=== PATIENT | female | born 1950 | race Caucasian/White ===

== ENCOUNTER 2019-08-31 16:54 | Inpatient (IN) | payer MEDICARE ==
[~2019-08-31] VITALS: Ht 149.9 cm; Wt 92.3 kg
[2019-08-31] MEDS ORDERED: TYLENOL 500MG500 MG PO (17:33)
[2019-08-31] MEDS ORDERED: ZYLOPRIM 100MG100 MG PO (17:34)
[2019-08-31] MEDS ORDERED: ASPIRIN E.C. 8181 MG PO (17:35)
[2019-08-31] MEDS ORDERED: XANAX .25M0.25 MG/TA PO (17:35)
[2019-08-31] MEDS ORDERED: NEURONTIN300 MG/CAP PO (17:36)
[2019-08-31] MEDS ORDERED: COREG 3.123.125 MG/T PO (17:36)
[2019-08-31] MEDS ORDERED: HYDROCORTISON28.4 GM TP (17:38)
[2019-08-31] MEDS ORDERED: INSULIN 70/3100 U/ML SQ (17:39)
[2019-08-31] MEDS ORDERED: KRILL OIL 5001 EACH PO (17:39)
[2019-08-31] MEDS ORDERED: LEVOXYL0.175 MG PO (17:41)
[2019-08-31] MEDS ORDERED: REQUIP 1MG T1 MG/TAB PO (17:43)
[2019-08-31] MEDS ORDERED: DOLOPHINE HCL5 MG PO (17:43)
[2019-08-31 17:50] VITALS: BP 135/75; PULSE 78; TEMP 97.5
[2019-08-31 19:37] VITALS: BP 158/55; PULSE 83; TEMP 97.8
--- NOTE | 2019-08-31 20:12 | NUR ---
Pt up to chair. No distress noted. Denies pain. Pt ambulated to bathroom and back to chair with 1 assist and walker. Well tolerated. Gait is shuffling at times. Pt displays right sided weakness in court interpreter. Some right sided drift also noted. Pupils are equal and accomodating. Speech is clear. No facial droop noted. Pt is alert and oriented. Respirations even and unlabored. Lungs clear. Abdomen is soft, nontender. BS+. L arm restriction- L FA AV fistula with positive bruit and thrill. Pulse strong. Incision in L Axilla noted. Dressing is falling off. Guaze and tape replaced. Scant amount of serosangenous drainage noted on dressing that was removed. 1+ edema noted to BLE. Pt denies needs.
--- NOTE | 2019-08-31 20:15 | NUR ---
Pt also has some slurring of her words.
--- NOTE | 2019-08-31 21:45 | NUR ---
Dr. Escobar at bedside with patient.
[2019-08-31 23:17] VITALS: BP 150/60; PULSE 103; TEMP 98.3
--- NOTE | 2019-08-31 23:20 | NUR ---
Pt resting in bed. Neurological status unchanged. Pt refusing SCDs.
[2019-09-01 04:11] VITALS: BP 140/46; PULSE 89; TEMP 98.4
--- NOTE | 2019-09-01 06:02 | NUR ---
Pt awake and alert this morning. at bedside. Pt reports that she "feels stronger". Pt still has some word slurring. R sided drift noted. dobie worker in with patient to gather patient history. No difficulty swallowing.
--- NOTE | 2019-09-01 07:51 | NUR ---
Pt down for MRI at this time and will then go to dialysis following.
[2019-09-01 08:16] LABS: BASO % 0.3 % (0.0-2.0); EOS # 0.2 (0.0-0.7); EOS % 3.8 % (0-4.0); GRAN # 4.3 (1.4-6.5); GRAN % 70.1 % (42.2-75.2); LYMPH # 0.9 (1.2-3.4); LYMPH % 14.2 % (20.0-51.0); MEAN CELL VOLUME 93 fl (80.0-100.0); MEAN CORPUSCULAR HEMOGLOBIN 31 pg (27.0-31.0); MEAN CORPUSCULAR HGB CONC 33 g/dl (33.0-37.0); MEAN PLATELET VOLUME 9.8 fl (7.4-10.4); MONO # 0.7 (0.1-0.6); MONO % 10.9 % (1.7-9.3); PLATELET COUNT 139 K/mm3 (130-400); RED BLOOD COUNT 3.59 M/mm3 (4.10-5.30); REDCELL DISTRIBUTION WIDTH-CV 15.1 % (11.5-14.5)
[2019-09-01 08:22] LABS: HEMATOCRIT 33.5 % (37.0-47.0)
[2019-09-01 08:27] LABS: ALBUMIN 3.9 gm/dL (3.5-5.0); CALCIUM 9.1 mg/dL (8.4-10.2); CHOLESTEROL RISK RATIO 8.6; CREATININE, serum 5.55 (0.52-1.25); POTASSIUM 4.6 mmol/L (3.4-5.0)
[2019-09-01 09:35] VITALS: BP 107/46; PULSE 84; TEMP 97.9
--- NOTE | 2019-09-01 10:55 | NUR ---
Initial visit; Patient thanked Insurance Territory Manager for stopping and offering God's blessings.
--- NOTE | 2019-09-01 11:11 | NUR ---
Pt to now have dialysis this afternoon. Pt back from MRI. Assessment completed and charted. Morning medications administered per OCT. Pt denies pain at this time. Denies SOB, on room air, breathing is even and unlabored. Radial pulses strong bilaterally. Pt has INT RFA IV that flushes w/o complications. Rt chest dialysis catheter in place, covered w/gauze and CDI. Pt has RFA fistula that has not been accessed yet. Pt denies dizziness, N/V/D, chest pain, vision changes. Shortage Worker strength is strong, , no drift in LE, some drift noted in LUE and pt states its difficult to left RUE. BLE edema 1+ noted. No other concerns expressed at this time.
[2019-09-01 11:43] VITALS: BP 142/59; PULSE 91; TEMP 97.3
--- NOTE | 2019-09-01 13:48 | NUR ---
Cupola Liner met with patient to discuss discharge planning. Patient lives in [place], [place] with her Kavin (ph#[phone]). Patient sees Dr. Matthew Alicea for primary care and obtains medications from [facility] in [place], [place]. Patient uses a walker and cane at home and reports independence with ADLS. Patient does not have Advance Directives and was not interested in setting them up at this time. Patient plans to return home upon discharge. SW to continue to follow as needed.
--- NOTE | 2019-09-01 14:10 | NUR ---
Pt down for dialysis at this time. Escorted via WC.
--- NOTE | 2019-09-01 18:44 | NUR ---
Pt back from dialysis at this time. Assisted to recliner for dinner. Denies pain at this time. No other concerns voiced.
--- NOTE | 2019-09-01 20:30 | NUR ---
Shift assessment complete. Pt resting in bedside recliner, awake, a&o, cooperative c cares. Pt denies pain or other c/o at this time. INT patent. Incision noted to L axilla s complication; L forearm AVF noted. HD cath to L chest s complication; dressing C/D/I. Tele in place. Neuro-check unchanged/ unremarkable. Pt denies further needs at this time. Call light in reach, bed alarm on. Will continue to monitor.
[2019-09-01 20:39] VITALS: BP 146/51; PULSE 84; TEMP 97.7
[2019-09-01 23:24] VITALS: BP 162/55; PULSE 61; TEMP 98.4
[2019-09-02 06:44] LABS: BASO % 0.2 % (0.0-2.0); EOS # 0.2 (0.0-0.7); GRAN # 3.4 (1.4-6.5); GRAN % 62.3 % (42.2-75.2); HEMOGLOBIN 11.1 g/dl (12.5-16.0); LYMPH % 17.9 % (20.0-51.0); MEAN CELL VOLUME 92 fl (80.0-100.0); MEAN CORPUSCULAR HEMOGLOBIN 31 pg (27.0-31.0); MEAN CORPUSCULAR HGB CONC 33 g/dl (33.0-37.0); MEAN PLATELET VOLUME 9.6 fl (7.4-10.4); MONO # 0.8 (0.1-0.6); MONO % 14.5 % (1.7-9.3); PLATELET COUNT 97 K/mm3 (130-400); RED BLOOD COUNT 3.63 M/mm3 (4.10-5.30); REDCELL DISTRIBUTION WIDTH-CV 15.1 % (11.5-14.5)
[2019-09-02 06:46] LABS: HEMATOCRIT 33.4 % (37.0-47.0)
[2019-09-02 06:59] LABS: ALBUMIN 3.8 gm/dL (3.5-5.0); CREATININE, serum 3.27 (0.52-1.25); PHOSPHOROUS 4.9 mg/dL (2.5-4.5); POTASSIUM 4.1 mmol/L (3.4-5.0)
[2019-09-02 07:37] VITALS: BP 161/61; PULSE 87; TEMP 97.7
--- NOTE | 2019-09-02 08:47 | NUR ---
Pt down for dialysis at this time. Escorted via WC.
--- NOTE | 2019-09-02 10:21 | NUR ---
Pt assessment completed and charted. Morning medications administered per OCT. Pt is A&O, 1 assist w/ walker in room, mostly steady gait. Pt states she has some discomfort to Lt side w/ previous fx ribs, denies needs for pain medication. LS diminished throughout, breathing is even and unlabored, pt denies SOB. Pt denies abdominal pain, N/V/D, dizziness, chest pain. Neuro checks are WNL, not scoring on stroke scale. Pt speech is slurred d/t not having in dentures, otherwise, speech is clear. LFA fistula in place, no complications. Rt chest dialysis catheter in place covered w/ gauze and is CDI. Pulses strong bilaterally. BLE edema noted 2+. Lt sd mid back bruising noted. No other concerns expressed by patient at this time.
--- NOTE | 2019-09-02 13:03 | NUR ---
Pt back from dialysis at this time. Lunch served. Pt denies dizziness and pain.
[2019-09-02 16:19] VITALS: BP 143/49; PULSE 81; TEMP 98.1
[2019-09-02 19:47] VITALS: BP 129/44; PULSE 83; TEMP 99
[2019-09-02 23:15] VITALS: BP 139/57; PULSE 94; TEMP 98.7
--- NOTE | 2019-09-03 00:42 | NUR ---
Patient states her "nerves are getting bad". When attempting to figure out what this meant, patient stated that some things upset her. Xanax PRN given. Noted to not be effective as patient states her "nerves are driving her crazy." Noted to be jittery and legs noted to be restless. Noted to have methadone PRN on her OCT. This was given. Awaiting results. Patient has been up to the bathroom several times with SBA with walker. Denies pain. Stroke checks WNL. Currently resting in the recliner. Will continue to monitor patient.
[2019-09-03 03:47] VITALS: BP 151/63; PULSE 70; TEMP 97.5
[2019-09-03 08:29] VITALS: BP 168/59; PULSE 98; TEMP 97.9
[2019-09-03 09:48] LABS: BASO % 0.4 % (0.0-2.0); EOS # 0.2 (0.0-0.7); EOS % 3.7 % (0-4.0); GRAN # 3.6 (1.4-6.5); GRAN % 67.3 % (42.2-75.2); HEMATOCRIT 34.2 % (37.0-47.0); HEMOGLOBIN 11.6 g/dl (12.5-16.0); LYMPH % 17.8 % (20.0-51.0); MEAN CELL VOLUME 91 fl (80.0-100.0); MEAN CORPUSCULAR HEMOGLOBIN 31 pg (27.0-31.0); MEAN CORPUSCULAR HGB CONC 34 g/dl (33.0-37.0); MEAN PLATELET VOLUME 11.5 fl (7.4-10.4); MONO # 0.5 (0.1-0.6); MONO % 9.9 % (1.7-9.3); PLATELET COUNT 60 K/mm3 (130-400); RED BLOOD COUNT 3.74 M/mm3 (4.10-5.30); REDCELL DISTRIBUTION WIDTH-CV 15.4 % (11.5-14.5)
[2019-09-03 09:56] LABS: ALBUMIN 3.9 gm/dL (3.5-5.0); CALCIUM 8.8 mg/dL (8.4-10.2); CREATININE, serum 2.62 (0.52-1.25); PHOSPHOROUS 3.4 mg/dL (2.5-4.5); POTASSIUM 3.7 mmol/L (3.4-5.0)
--- NOTE | 2019-09-03 15:56 | NUR ---
Java Application Developer spoke with Speech Therapist who is recommending patient follow up with outpatient ST upon discharge. SW met with patient who states they would want to receive that from [facility] in [place]. SW to continue to follow.
[2019-09-03 17:00] VITALS: BP 134/54; PULSE 71; TEMP 98.8
[2019-09-03 19:23] VITALS: BP 139/45; PULSE 60; TEMP 98.4
--- NOTE | 2019-09-03 20:00 | NUR ---
PT SITTING IN RECLINER. WEEPY SINCE WENT HOME FOR THE NIGHT. SPEECH SL SLURRED. MORBIDLY OBESE. DIALYSIS CATHETER RT CHEST.CDI. AV FISTULA WITH GAUZE DRSG CDI. HAD DIALYSIS TODAY. FLUID RESTRICTION CONTINUES. DENIES PAIN AT THEI TIME. CALL LIGHT IN REACH.
--- NOTE | 2019-09-03 20:00 | NUR ---
Pt up to chair for most of day. was present to visit earlier. Pt had dialysis today. SBA with walker with ambulation to bathroom. Denied pain or other complaints. Pt was tearful though, stating she wants to go home but understanding why she is still here.
[2019-09-03 23:43] VITALS: BP 137/64; PULSE 92; TEMP 97.2
[2019-09-04 04:19] VITALS: BP 133/51; PULSE 77; TEMP 97.9
[2019-09-04 07:27] LABS: BASO % 0.5 % (0.0-2.0); EOS # 0.3 (0.0-0.7); EOS % 4.5 % (0-4.0); GRAN # 3.1 (1.4-6.5); GRAN % 53.4 % (42.2-75.2); HEMOGLOBIN 11.2 g/dl (12.5-16.0); LYMPH # 1.4 (1.2-3.4); LYMPH % 24.8 % (20.0-51.0); MEAN CELL VOLUME 94 fl (80.0-100.0); MEAN CORPUSCULAR HEMOGLOBIN 31 pg (27.0-31.0); MEAN CORPUSCULAR HGB CONC 33 g/dl (33.0-37.0); MEAN PLATELET VOLUME 12.2 fl (7.4-10.4); MONO # 0.9 (0.1-0.6); MONO % 16.1 % (1.7-9.3); PLATELET COUNT 56 K/mm3 (130-400); RED BLOOD COUNT 3.58 M/mm3 (4.10-5.30); REDCELL DISTRIBUTION WIDTH-CV 15.4 % (11.5-14.5)
[2019-09-04 07:34] LABS: HEMATOCRIT 33.5 % (37.0-47.0)
[2019-09-04 07:36] LABS: ALBUMIN 3.8 gm/dL (3.5-5.0); CREATININE, serum 3.24 (0.52-1.25); PHOSPHOROUS 4.9 mg/dL (2.5-4.5); POTASSIUM 4.1 mmol/L (3.4-5.0)
[2019-09-04 07:44] VITALS: BP 130/49; PULSE 79; TEMP 97.7
--- NOTE | 2019-09-04 11:02 | NUR ---
Pt assessment completed and charted. Morning medications administered per OCT. Pt sitting in bed eating breakfast. Pt is A&O, 1 assist w/ walker, steady gait. Pt has rt chest dialysis catheter, site is CDI. LFA fistula present, no dressing, pulse palpable. INT RFA flushes w/o complications. Pt on room air, denies SOB, breathing is even and unlabored. LS diminshed throughout. Heart RRR. BLE 2+ edema noted. Some slurring of words, seems to be d/t dentures and her baseline. Not scoring on stroke scale, no difficulty noted in strength or swallowing. Rt shoulder weak, per pt is normal and always requires assistance in lifting arm. Pt denies pain, dizziness, N/V/D. No concerns noted.
--- NOTE | 2019-09-04 11:42 | NUR ---
Pt discharge instructions discussed and reviewed w/ patient who verbalized understanding. All questions answered. No further concerns. RFA INT IV dc'd w/o complications and catheter tip intact. No other concerns expressed at this time.
== END 2019-09-04 13:00 | disposition home or self-care (01) | DRG 64 ==
LOC: MEDICAL 16:54
PROVIDERS: Internal Medicine Nephrology; ADMIT Family Medicine
PROC: 5A1D70Z Performance of Urinary Filtration, Intermittent, Less than 6 Hours Per Day (ICD-10-PCS; principal; 2019-09-02)
DX: I63.89 Other cerebral infarction (principal); N18.6 End stage renal disease; I13.2 Hypertensive heart and chronic kidney disease with heart failure and with stage 5 chronic kidney disease, or end stage renal disease; I50.32 Chronic diastolic (congestive) heart failure; Z68.41 Body mass index [BMI] 40.0-44.9, adult; R47.01 Aphasia; G89.29 Other chronic pain; E11.22 Type 2 diabetes mellitus with diabetic chronic kidney disease; R09.89 Other specified symptoms and signs involving the circulatory and respiratory systems; E66.9 Obesity, unspecified; E78.5 Hyperlipidemia, unspecified; K21.9 Gastro-esophageal reflux disease without esophagitis; G47.33 Obstructive sleep apnea (adult) (pediatric); E03.9 Hypothyroidism, unspecified; J44.9 Chronic obstructive pulmonary disease, unspecified; G43.909 Migraine, unspecified, not intractable, without status migrainosus; Z79.82 Long term (current) use of aspirin; Z79.4 Long term (current) use of insulin; Z85.118 Personal history of other malignant neoplasm of bronchus and lung; Z91.19 Patient's noncompliance with other medical treatment and regimen
CPT/HCPCS: A9585; J1644; J1815; J7030

== ENCOUNTER 2020-04-11 18:13 | Inpatient (IN) | payer MEDICARE ==
[~2020-04-11] VITALS: Ht 149.9 cm; Wt 79.4 kg
[~2020-04-11 18:13] MED LIST: ASPIRIN E.C. 8181 MG PO; COREG 3.123.125 MG/T PO; DOLOPHINE HCL5 MG PO; HYDROCORTISON28.4 GM TP; INSULIN 70/3100 U/ML SQ; KRILL OIL 5001 EACH PO; LEVOXYL0.175 MG PO; NEURONTIN300 MG/CAP PO; REQUIP 1MG T1 MG/TAB PO; TYLENOL 500MG500 MG PO; XANAX .25M0.25 MG/TA PO; ZYLOPRIM 100MG100 MG PO
[2020-04-11 23:24] VITALS: BP 178/72; PULSE 93; TEMP 98.7
[2020-04-11 23:31] LABS: BASO # 0.1 (0.0-0.2); EOS # 0.2 (0.0-0.7); EOS % 4.8 % (0-4.0); GRAN % 59.1 % (42.2-75.2); HEMOGLOBIN 11.4 g/dl (12.5-16.0); LYMPH # 1.1 (1.2-3.4); MEAN CELL VOLUME 97 fl (80.0-100.0); MEAN CORPUSCULAR HEMOGLOBIN 34 pg (27.0-31.0); MEAN CORPUSCULAR HGB CONC 35 g/dl (33.0-37.0); MEAN PLATELET VOLUME 10.1 fl (7.4-10.4); MONO # 0.6 (0.1-0.6); MONO % 12.5 % (1.7-9.3); PLATELET COUNT 227 K/mm3 (130-400); RED BLOOD COUNT 3.32 M/mm3 (4.10-5.30); REDCELL DISTRIBUTION WIDTH-CV 12.6 % (11.5-14.5)
[2020-04-11 23:50] LABS: HEMATOCRIT 32.2 % (37.0-47.0)
[2020-04-11 23:59] LABS: INR 1.4 (0.8-3.0); PROTHROMBIN TIME 15.2 SECONDS (9.7-12.8)
[2020-04-12] VITALS (10 sets, daily range): BP systolic 151–187; BP diastolic 53–83; PULSE 75–96; TEMP 97.7–98.4
[2020-04-12 00:04] LABS: ALBUMIN 4.3 gm/dL (3.5-5.0); BILIRUBIN,TOTAL 0.4 mg/dL (0.0-1.0); CALCIUM 9.6 mg/dL (8.4-10.2); CREATININE, serum 2.2 (0.52-1.25); POTASSIUM 4.2 mmol/L (3.4-5.0); TOTAL PROTEIN 7.9 gm/dL (6.4-8.2)
[2020-04-12] MEDS ORDERED: COUMADIN 1MG1 MG/TAB PO (00:30)
[2020-04-12 07:51] LABS: ALBUMIN 3.9 gm/dL (3.5-5.0); CALCIUM 9.4 mg/dL (8.4-10.2); CREATININE, serum 2.31 (0.52-1.25); PHOSPHOROUS 3.2 mg/dL (2.5-4.5); POTASSIUM 4.3 mmol/L (3.4-5.0)
--- NOTE | 2020-04-12 08:54 | NUR ---
pt resting in bed, informed consent was obtained for procedure. pt taken down to qc lab technician.
--- NOTE | 2020-04-12 09:48 | NUR ---
SEE MERGE DOCUMENTATION FOR MEDICATION ADMINISTRATION TIMES AND INTRA/POST PROCEDURE SEDATION ASSESSMENTS.
--- NOTE | 2020-04-12 11:43 | NUR ---
Pt retured from fish hatchery laborer, awake and oriented. assessed surgical sites on the right chest dialysis catheter and left arm fistula. vital signs taken and stable. no complaints at this time.
--- NOTE | 2020-04-12 11:52 | NUR ---
SABIHA met with the patient to discuss disharge plan. The patient lives in [place], [place] with her , Kavin (ph#[phone]). She reports independence with ADLs and has a cane, walker, and wheelchair. The patient's PCP is Dr. Matthew Alicea in [place], [place] and she receives her medications at the [facility] in [place], [place]. She reports occasional difficulties affording her meds. The patient does not have advanced directives, but she was interested in obtaining a form for DPOA-HC. SABIHA provided. The patient plans to return home with her upon discharge. SW attempted to contact the patient's . His number states that his voicemail is not set up. The patient reports that her is coming up to the hospital to see him. SW to continue to follow as needed.
--- NOTE | 2020-04-12 15:30 | NUR ---
Pt down for dialysis at this time, escorted by WC, at side. No further needs.
--- NOTE | 2020-04-12 19:00 | NUR ---
Pt back from dialysis at this time, awake and alert. BP stable, pt denies pain, states she feels "worn out". Pt repositioned in bed, dinner tray set up. No further needs, report given to YVON Mar.
--- NOTE | 2020-04-12 21:00 | NUR ---
Patient assessed at this time. Alert and oriented x 4, and able to make needs known. Reported level 4 pain to back. Peripheral IV to right AC flushed. Site is without redness, warmth, swelling, and pain. AV fistula to left arm, positive bruit and thrill. Bandaid CDI to LUE. HD catheter to right chest with dressing CDI. Denies having SOB and dyspnea. LS CTA in upper lobes, diminished in lower. HRR. Capillary refill less than 3 seconds. Non-tenting skin turgor. BSAx4. Abdomen soft and non-tender. 2+ edema BLE. Voices no questions, needs, or concerns at this time. Resting in bed with call light within reach. High fall risk precautions in place.
[2020-04-13] VITALS (9 sets, daily range): BP systolic 147–188; BP diastolic 53–90; PULSE 70–93; TEMP 97.5–98.7
--- NOTE | 2020-04-13 05:23 | NUR ---
Patient has been resting in bed. Has been up to use the bathroom multiple times with one assist. Given PRN APAP once during the night for pain to back. Voices no further questions, needs, or concerns at this time. Resting in bed with call light within reach.
[2020-04-13 08:32] LABS: ALBUMIN 4.4 gm/dL (3.5-5.0); CALCIUM 9.3 mg/dL (8.4-10.2); CREATININE, serum 2.39 (0.52-1.25); PHOSPHOROUS 3.1 mg/dL (2.5-4.5); POTASSIUM 4.5 mmol/L (3.4-5.0)
--- NOTE | 2020-04-13 08:37 | NUR ---
Pt resting in bed, easy to awaken. heart sounds regular, S1 and S2 present. denies chest pain and shortness of breath. lung sounds are clear in all lobes, denies cough. pt reports back pain but denies pain anywhere else. blood sugar 300, gave insulin 6 units per orders. blood pressure was 147/69, hydralazine not required per orders. no complaints at this time, will continue to monitor.
--- NOTE | 2020-04-13 09:27 | NUR ---
Initial visit; Patient thanked Slipper Maker for looking in on her and offering God's blessings and keeping her in Slipper Maker's prayers.
--- NOTE | 2020-04-13 20:00 | NUR ---
Patient assessed at this time. Alert and oriented, and able to make needs known. Reports pain to back. Peripheral INT to left forearm flushed. Site is without redness, warmth, swelling, and pain. Denies having SOB and dyspnea. LS CTA in upper lobes, diminished in lower lobes. Respirations even and unlabored. HRR. Telemetry in place. Capillary refill less than 3 seconds. Non-tenting skin turgor. BSAx4. Abdomen soft and non-tender. 2+ edema BLE. HD catheter to right chest is CDI. Voices no questions, needs, or concerns at this time. Resting in bed with call light within reach.
--- NOTE | 2020-04-14 | NUR ---
BP 160/63. Given PRN Appresoline per orders at this time.
[2020-04-14 03:11] VITALS: BP 156/77; PULSE 78; TEMP 98.2
--- NOTE | 2020-04-14 06:28 | NUR ---
Patient has been resting in bed with call light within reach. Voices no questions, needs, or concerns at this time.
[2020-04-14 07:29] LABS: CALCIUM 9.2 mg/dL (8.4-10.2); CREATININE, serum 2.82 (0.52-1.25); PHOSPHOROUS 3.8 mg/dL (2.5-4.5); POTASSIUM 4.5 mmol/L (3.4-5.0)
[2020-04-14 07:30] VITALS: BP 153/56; PULSE 76; TEMP 97.8
--- NOTE | 2020-04-14 08:36 | NUR ---
PATIENT IS SITTING IN HER CHAIR THIS MORNING. PATIENT CAN TELL ME HER , WHERE SHE IS, MONTH, AND PRESIDENT. PATIENT HAD TROUBLE TELLING ME THE YEAR. PATIENT TOOK HER MORNING PILLS WITH NO ISSUES. PATIENT HAS ALREADY WALKED IN THE HALLWAY WITH PHYSICAL THERAPY. DENIES ANY PAIN THIS MORNING.
[2020-04-14 09:55] LABS: BASO % 0.6 % (0.0-2.0); EOS # 0.4 (0.0-0.7); GRAN # 4.5 (1.4-6.5); GRAN % 64.3 % (42.2-75.2); HEMOGLOBIN 10.9 g/dl (12.5-16.0); LYMPH # 1.2 (1.2-3.4); LYMPH % 17.2 % (20.0-51.0); MEAN CELL VOLUME 98 fl (80.0-100.0); MEAN CORPUSCULAR HEMOGLOBIN 33 pg (27.0-31.0); MEAN CORPUSCULAR HGB CONC 34 g/dl (33.0-37.0); MEAN PLATELET VOLUME 10.4 fl (7.4-10.4); MONO # 0.9 (0.1-0.6); MONO % 12.2 % (1.7-9.3); PLATELET COUNT 195 K/mm3 (130-400); REDCELL DISTRIBUTION WIDTH-CV 12.6 % (11.5-14.5)
[2020-04-14 10:17] LABS: HEMATOCRIT 32.2 % (37.0-47.0)
[2020-04-14 12:30] VITALS: BP 161/77; PULSE 75; TEMP 97.6
--- NOTE | 2020-04-14 12:33 | NUR ---
PATIENT IS AT DIALYSIS. BLOOD SUGAR WILL BE RECHECKED IN ABOUT AN HOUR TO SEE WHERE THE PATIENT IS SITTING SINCE SHE WILL NOT BE EATING ANY LUNCH
[2020-04-14 16:04] VITALS: BP 122/60; PULSE 87; TEMP 97.5
--- NOTE | 2020-04-14 16:06 | NUR ---
SUMMER CAMP COUNSELOR NOTE: PT RETURNED FROM DIALYSIS @ 1600. HAD NOT HAD LUNCH, SNACK PROVIDED. TOILETTED AND VSS CHARTED
--- NOTE | 2020-04-14 16:31 | NUR ---
SW met with the patient to review d/c plan and to discuss PT's recommendation of may benefiting from home health. The patient reports that she plans to return back home with her . She states that Dr. Escobar is talking about possibly tomorrow. The patient states that she is not interested in any home health at this time. SW to continue to follow as needed.
--- NOTE | 2020-04-14 17:26 | NUR ---
PATIENT WENT TO DIALYSIS TODAY WHERE 1700 MLS OF FLUID WAS TAKEN OFF OF HER. PATIENT TOLERATED HER TREATMENT WELL AND WHEN SHE GOT BACK TO THE FLOOR SHE HAD A SNACK BECAUSE SHE MISSED HER LUNCH BECAUSE OF DIALYSIS. PATIENT HAS REPORTED NO PAIN DURING THE DAY. PATIENT DOES NOT REPORT THAT SHE NEEDS ANYTHING. WILL CONTINUE TO MONITOR, WILL REPORT OFF TO FINGERPRINT CLERK.
[2020-04-14 18:54] VITALS: BP 130/45; PULSE 82; TEMP 98.5
--- NOTE | 2020-04-14 19:00 | NUR ---
pt refused bath/shower despite multiple asks.
--- NOTE | 2020-04-14 20:35 | NUR ---
Patient assessed at this time. Alert and oriented x 4, and able to make needs known. Reports pain to back. Peripheral INT to right forearm flushed. Site is without redness, warmth, swelling, and pain. Denies having SOB and dyspnea. LS CTA. Respirations even and unlabored. HRR. Telemetry in place: normal sinus. Capillary refill less than 3 seconds. Non-tenting skin turgor. BSAx4. Abdomen soft and non-tender. 2+ edema BLE. Voices no questions, needs, or concerns at this time. Watching TV in recliner. Call light within reach.
[2020-04-14 23:20] VITALS: BP 141/56; PULSE 80; TEMP 97.9
[2020-04-15 03:09] VITALS: BP 141/59; PULSE 72; TEMP 98.3
--- NOTE | 2020-04-15 05:21 | NUR ---
Patient has voiced no questions, needs, or concerns this shift. Resting in bed with call light within reach. Has been calling for assistance with going to the bathroom.
[2020-04-15 07:51] VITALS: BP 128/49; PULSE 73; TEMP 98.6
[2020-04-15 09:51] LABS: BASO # 0.1 (0.0-0.2); BASO % 0.8 % (0.0-2.0); EOS # 0.4 (0.0-0.7); EOS % 5.8 % (0-4.0); GRAN % 65.6 % (42.2-75.2); HEMOGLOBIN 11.1 g/dl (12.5-16.0); LYMPH # 1.2 (1.2-3.4); LYMPH % 19.2 % (20.0-51.0); MEAN CELL VOLUME 97 fl (80.0-100.0); MEAN CORPUSCULAR HEMOGLOBIN 34 pg (27.0-31.0); MEAN CORPUSCULAR HGB CONC 35 g/dl (33.0-37.0); MEAN PLATELET VOLUME 10.3 fl (7.4-10.4); MONO # 0.5 (0.1-0.6); MONO % 7.4 % (1.7-9.3); PLATELET COUNT 194 K/mm3 (130-400); RED BLOOD COUNT 3.31 M/mm3 (4.10-5.30); REDCELL DISTRIBUTION WIDTH-CV 12.6 % (11.5-14.5)
[2020-04-15 09:52] LABS: HEMATOCRIT 32.2 % (37.0-47.0)
[2020-04-15 10:02] LABS: ALBUMIN 4.1 gm/dL (3.5-5.0); CALCIUM 9.1 mg/dL (8.4-10.2); CREATININE, serum 1.84 (0.52-1.25); PHOSPHOROUS 2.9 mg/dL (2.5-4.5); POTASSIUM 3.7 mmol/L (3.4-5.0)
--- NOTE | 2020-04-15 10:48 | NUR ---
Patient alert and oriented this am. in dialysis at the moment.
[2020-04-15 10:57] LABS: INR 1.4 (0.8-3.0); PROTHROMBIN TIME 15.8 SECONDS (9.7-12.8)
[2020-04-15 12:13] VITALS: BP 144/45
--- NOTE | 2020-04-15 16:39 | NUR ---
patient have a follow up appointment with surgical - Dr Oneill. INT discontinued. patient discharged with .
--- NOTE | 2020-04-15 16:48 | NUR ---
The patient discharged back home with her today, 04/15. No additional needs at this time.
--- NOTE | 2020-04-15 17:01 | NUR ---
Dialysis done today, no fluid was removed. patient will continue Sat schedule.
== END 2020-04-15 16:00 | disposition home or self-care (01) | DRG 314 ==
LOC: MEDICAL 18:13
PROVIDERS: Nurse Practitioner; ADMIT Internal Medicine Nephrology
PROC: 0JH63XZ Insertion of Tunneled Vascular Access Device into Chest Subcutaneous Tissue and Fascia, Percutaneous Approach (ICD-10-PCS; 2020-04-12)
PROC: 02H633Z Insertion of Infusion Device into Right Atrium, Percutaneous Approach (ICD-10-PCS; 2020-04-12)
PROC: 5A1D70Z Performance of Urinary Filtration, Intermittent, Less than 6 Hours Per Day (ICD-10-PCS; principal; 2020-04-15)
DX: T82.590A Other mechanical complication of surgically created arteriovenous fistula, initial encounter (principal); N18.6 End stage renal disease; I13.2 Hypertensive heart and chronic kidney disease with heart failure and with stage 5 chronic kidney disease, or end stage renal disease; I50.32 Chronic diastolic (congestive) heart failure; D68.9 Coagulation defect, unspecified; E11.22 Type 2 diabetes mellitus with diabetic chronic kidney disease; E03.9 Hypothyroidism, unspecified; E66.9 Obesity, unspecified; E78.5 Hyperlipidemia, unspecified; G47.33 Obstructive sleep apnea (adult) (pediatric); D63.1 Anemia in chronic kidney disease; K21.9 Gastro-esophageal reflux disease without esophagitis; Z86.73 Personal history of transient ischemic attack (TIA), and cerebral infarction without residual deficits; Z85.110 Personal history of malignant carcinoid tumor of bronchus and lung; Z85.05 Personal history of malignant neoplasm of liver; Z79.4 Long term (current) use of insulin; Z88.0 Allergy status to penicillin; Z88.2 Allergy status to sulfonamides; Y83.8 Other surgical procedures as the cause of abnormal reaction of the patient, or of later complication, without mention of misadventure at the time of the procedure
CPT/HCPCS: J1815; J2250; J3010; J7030; Q9967